=== PATIENT | female | born 1975 | race African-American/Black ===

== ENCOUNTER 2018-08-24 12:03 | Emergency (ER) | payer MEDICAID, OTHER ==
[~2018-08-24] VITALS: Ht 170.2 cm; Wt 69.2 kg
[2018-08-24] MEDS ORDERED: TRAM-48 PO (12:42)
[2018-08-24] MEDS ORDERED: PENI500T PO (12:42)
--- NOTE | 2018-08-24 12:42 | PHYS DOC ---
Past History Past Medical History: No Pertinent History Past Surgical History: No Surgical History Smoking: Cigarettes Alcohol Use: None Drug Use: None Adult General Chief Complaint Chief Complaint: DENTAL PROBLEM HPI HPI Patient is a 43 year old female who presents with complaining of dental pain. Patient states she has had pain in right upper jaw and tooth pain for a few days that does not getting better with [id number] pain medication and complaining of edema of her gum. Patient denies nausea and vomiting, fever and chills, dysphagia. Patient states she lost her dental insurance and expecting to have insurance next month. Review of Systems Review of Systems Constitutional: Denies fever or chills [] Eyes: Denies change in visual acuity, redness, or eye pain [] HENT: Denies nasal congestion or sore throat [] Respiratory: Denies cough or shortness of breath [] Cardiovascular: No additional information not addressed in HPI [] GI: Denies abdominal pain, nausea, vomiting, bloody stools or diarrhea [] : Denies dysuria or hematuria [] Musculoskeletal: Denies back pain or joint pain [] Integument: Denies rash or skin lesions [] Neurologic: Denies headache, focal weakness or sensory changes [] Endocrine: Denies polyuria or polydipsia [] All other systems were reviewed and found to be within normal limits, except as documented in this note. Allergies Allergies Allergies Coded Allergies Type Severity Reaction Last Updated Verified Sulfa (Sulfonamide Antibiotics) Allergy Intermediate Hives 08/24/18 Yes citric acid Allergy Unknown 08/24/18 Yes Physical Exam Physical Exam Constitutional: Well developed, well nourished, mild distress, non-toxic appearance. [] HENT: Normocephalic, atraumatic, bilateral external ears normal, oropharynx moist, no oral exudates, nose normal, extensive dental caries, edema and erythema of gum and tooth #5 and 6 with tenderness Eyes: PERRLA, EOMI, conjunctiva normal, no discharge. [] Neck: Normal range of motion, no tenderness, supple, no stridor. [] Cardiovascular:Heart rate regular rhythm, no murmur [] Lungs & Thorax: Bilateral breath sounds clear to auscultation [] Skin: Warm, dry, no erythema, no rash. [] Back: No tenderness, no CVA tenderness. [] Extremities: No tenderness, no cyanosis, no clubbing, ROM intact, no edema. [] Neurologic: Alert and oriented X 3, normal motor function, normal sensory function, no focal deficits noted. [] Psychologic: Affect normal, judgement normal, mood normal. [] Current Patient Data Vital Signs Vital Signs Date Time Temp Pulse Resp B/P (MAP) Pulse Ox O2 Delivery O2 Flow Rate FiO2 08/24/18 12:03 98.2 113 20 97 Room Air EKG EKG [] Radiology/Procedures Radiology/Procedures [] Course & Med Decision Making Course & Med Decision Making Evaluation of patient in ER showed 43-year-old smoker female patient complaining of dental pain for several days. Patient had erythema, and dental tenderness. Patient did not want to have pain medication in ER. Patient psychiatric to quit smoking and follow up with her dentist. Prescription for pain medication and antibiotics was given. Dragon Disclaimer Dragon Disclaimer This electronic medical record was generated, in whole or in part, using a voice recognition dictation system. Departure Departure: Impression: Primary Impression: Dental abscess Additional Impressions: Tobacco abuse Tobacco abuse counseling Disposition: HOME, SELF-CARE (at 1240) Condition: STABLE Referrals: PCP,NO (PCP) Patient Instructions: Dental Abscess, Smoking Cessation Additional Instructions: Drink plenty of liquids Follow-up with a dentist in 3-5 days Return to ER if not getting better Quit smoking Scripts Tramadol Hcl (ULTRAM) 50 Mg Tablet 50 MG PO PRN Q6HRS PRN for PAIN, #20 TAB Prov: ESTEBAN GELLER MD 08/24/18 Penicillin V Potassium (PENICILLIN V POTASSIUM) 500 Mg Tablet 1 TAB PO QID for Infection, #40 TAB Prov: ESTEBAN GELLER MD 08/24/18 Problem Qualifiers ESTEBAN GELLER MD Aug 24, 2018 12:42
[2018-08-24 12:55] VITALS: BP 135/91
== END 2018-08-24 12:55 | disposition home or self-care (01) ==
LOC: ER 12:03
DX: K04.7 Periapical abscess without sinus (principal); F17.210 Nicotine dependence, cigarettes, uncomplicated; Z71.6 Tobacco abuse counseling; Z88.2 Allergy status to sulfonamides; Z88.8 Allergy status to other drugs, medicaments and biological substances
CPT/HCPCS: 99283

== ENCOUNTER 2019-02-19 13:36 | Emergency (ER) | payer SELFPAY ==
[~2019-02-19] VITALS: Ht 170.2 cm; Wt 69.4 kg
[~2019-02-19 13:36] MED LIST: PENI500T PO; TRAM-48 PO
[2019-02-19] MEDS ORDERED: AMOX500T PO (14:06)
[2019-02-19] MEDS ORDERED: NEOM10SO7 OT (14:06)
--- NOTE | 2019-02-19 14:06 | PHYS DOC ---
Past History Past Medical History: No Pertinent History Past Surgical History: No Surgical History Smoking: Cigarettes Alcohol Use: None Drug Use: None Adult General Chief Complaint Chief Complaint: EARACHE/EAR PAIN HPI HPI Patient is a 43-year-old female presents complaining of bilateral ear discomfort and feeling of fullness. Left is worse than the right. Patient has been swimming this week. She is recently finished a course of clindamycin for dental issues. No drainage from the ears. She sleeps with ear plugs and when she gets up in the morning it feels like they are still in place. No fever. Outpatient makes the symptoms worse. Pain is controlled with ibuprofen. Pain is moderate in intensity.[] Review of Systems Review of Systems Constitutional: Denies fever or chills [] Eyes: Denies change in visual acuity, redness, or eye pain [] HENT: Denies nasal congestion or sore throat [] Respiratory: Denies cough or shortness of breath [] Cardiovascular: No chest pain or palpitations[] GI: Denies abdominal pain, nausea, vomiting, bloody stools or diarrhea [] : Denies dysuria or hematuria [] Musculoskeletal: Denies back pain or joint pain [] Integument: Denies rash or skin lesions [] Neurologic: Denies headache, focal weakness or sensory changes [] Endocrine: Denies polyuria or polydipsia [] All other systems were reviewed and found to be within normal limits, except as documented in this note. Allergies Allergies Allergies Coded Allergies Type Severity Reaction Last Updated Verified Sulfa (Sulfonamide Antibiotics) Allergy Intermediate Hives 08/24/18 Yes citric acid Allergy Unknown 08/24/18 Yes Physical Exam Physical Exam Constitutional: Well developed, well nourished, no acute distress, non-toxic appearance. [] HENT: Normocephalic, atraumatic, bilateral external ears normal, pain with tra holland tug on the left, no mastoid tenderness bilaterally, left canal is erythematous and edematous when compared with the right. TM has mild fluid behind it on the left. Normal TM on the right. Oropharynx moist, no oral exudates, nose normal. [] Eyes: PERRLA, EOMI, conjunctiva normal, no discharge. [] Neck: Normal range of motion, no tenderness, supple, no stridor. [] Cardiovascular:Heart rate regular rhythm, no murmur [] Lungs & Thorax: Bilateral breath sounds clear to auscultation [] Abdomen: Not examined[] Skin: Warm, dry, no erythema, no rash. [] Back: No tenderness, no CVA tenderness. [] Extremities: No tenderness, no cyanosis, no clubbing, ROM intact, no edema. [] Neurologic: Alert and oriented X 3, normal motor function, normal sensory function, no focal deficits noted. [] Psychologic: Affect normal, judgement normal, mood normal. [] Current Patient Data Vital Signs Vital Signs Date Time Temp Pulse Resp B/P (MAP) Pulse Ox O2 Delivery O2 Flow Rate FiO2 02/19/19 13:46 98.1 99 20 98 Room Air EKG EKG [] Radiology/Procedures Radiology/Procedures [] Course & Med Decision Making Course & Med Decision Making Pertinent Labs and Imaging studies reviewed. (See chart for details) Medical decision making: Patient with evidence of otitis externa as well as otitis media. No evidence of mastoiditis. No evidence meningitis or encephalitis. No evidence of inadequate pain medication. Will treat as an outpatient with appropriate empiric medication.[] Dragon Disclaimer Dragon Disclaimer This electronic medical record was generated, in whole or in part, using a voice recognition dictation system. Departure Departure: Impression: Primary Impression: Otitis externa Additional Impression: Otitis media Disposition: 01 HOME, SELF-CARE Condition: IMPROVED Referrals: PCPPRAVEENA (PCP) Patient Instructions: Otitis Externa, Otitis Media, Adult Additional Instructions: Follow-up with your regular doctor in 2 days. If you do not have regular doctor list of local clinics will be provided for you. Take the medication as prescribed. Return to the ER if worsening pain or any other concerns. Scripts Amoxicillin (AMOXICILLIN) 500 Mg Tablet 1 TAB PO TID for OTITIS MEDIA, #30 TAB Prov: WESLY CHÁVEZ DO 02/19/19 Neomycin/Polymyxin B Sulf/Hc ([id number] EAR SOLN) 10 Ml Solution 4 DROP OT QID for otitis externa for 10 Days, [facility] [place]: WESLY CHÁVEZ DO 02/19/19 Problem Qualifiers Primary Impression: Otitis externa Otitis externa type: swimmer's ear Chronicity: acute Laterality: bilateral Qualified Codes: H60.333 - Swimmer's ear, bilateral Additional Impression: Otitis media Otitis media type: unspecified Chronicity: acute Qualified Codes: H66.90 - Otitis media, unspecified, unspecified ear WESLY CHÁVEZ DO Feb 19, 2019 14:06
[2019-02-19] MEDS ORDERED: IV NORMAL SALINE 1,000ML 1,000 ML IV SCH (14:08)
[2019-02-19] MEDS ORDERED: ACETAMINOPHEN 325 MG TABLET PO PRN (14:15)
[2019-02-19] MEDS ORDERED: ONDANSETRON PF 4 MG/2 ML VIAL. IV PRN (14:15)
[2019-02-19] MEDS ORDERED: MORPHINE SULFATE 4 MG/ML DISP.SYRIN. IV PRN (14:15)
[2019-02-19 14:17] VITALS: BP 121/71
== END 2019-02-19 16:05 | disposition home or self-care (01) ==
LOC: ER 13:36
DX: H60.333 Swimmer's ear, bilateral (principal); H66.92 Otitis media, unspecified, left ear; F17.210 Nicotine dependence, cigarettes, uncomplicated; Z88.2 Allergy status to sulfonamides; Z88.8 Allergy status to other drugs, medicaments and biological substances
CPT/HCPCS: 99283

== ENCOUNTER 2019-02-21 14:12 | Emergency (ER) | payer OTHER ==
[~2019-02-21] VITALS: Ht 322.6 cm; Wt 69.2 kg
[~2019-02-21 14:12] MED LIST changes: +AMOX500T PO; +NEOM10SO7 OT
[2019-02-21 14:43] VITALS: BP 108/69
[2019-02-21] MEDS ORDERED: MECL25TA3 PO (15:11)
[2019-02-21] MEDS ORDERED: MELO7.5T29 PO (15:11)
--- NOTE | 2019-02-21 15:11 | PHYS DOC ---
Past History Past Medical History: No Pertinent History Past Surgical History: No Surgical History Smoking: Cigarettes Alcohol Use: None Drug Use: None Adult General Chief Complaint Chief Complaint: EARACHE/EAR PAIN HPI HPI Patient is a 43-year-old female presents with continued ear discomfort and some dizziness that is worse when she turns her head. The discomfort is better than when she was seen 2 days ago for an otitis media and otitis externa. She denies any drainage from the ear. She notes that her left ear is doing better or 8 years to hurt hurting so she started using the drops in her right ear for the otitis externa. Dizziness is worse with head movement. No nausea or vomiting.[] Review of Systems Review of Systems Constitutional: Denies fever or chills [] Eyes: Denies change in visual acuity, redness, or eye pain [] HENT: Denies nasal congestion or sore throat see history of present illness [] Respiratory: Denies cough or shortness of breath [] Cardiovascular: Chest pain or palpitations[] GI: Denies abdominal pain, nausea, vomiting, bloody stools or diarrhea [] : Denies dysuria or hematuria [] Musculoskeletal: Denies back pain or joint pain [] Integument: Denies rash or skin lesions [] Neurologic: Denies headache, focal weakness or sensory changes [] Endocrine: Denies polyuria or polydipsia [] All other systems were reviewed and found to be within normal limits, except as documented in this note. Allergies Allergies Allergies Coded Allergies Type Severity Reaction Last Updated Verified Sulfa (Sulfonamide Antibiotics) Allergy Intermediate Hives 08/24/18 Yes citric acid Allergy Unknown 08/24/18 Yes Physical Exam Physical Exam Constitutional: Well developed, well nourished, no acute distress, non-toxic appearance. [] HENT: Normocephalic, atraumatic, bilateral external ears normal, left canal looks significantly better than when I saw 2 days ago. No significant fluid behind either TM. No mastoid tenderness. No significant right canal edema. Oropharynx moist, no oral exudates, nose normal. [] Eyes: PERRLA, EOMI, conjunctiva normal, no discharge. [] Neck: Normal range of motion, no tenderness, supple, no stridor. [] Cardiovascular:Heart rate regular rhythm, no murmur [] Lungs & Thorax: Bilateral breath sounds clear to auscultation [] Abdomen: Bowel sounds normal, soft, no tenderness, no masses, no pulsatile masses. [] Skin: Warm, dry, no erythema, no rash. [] Back: No tenderness, no CVA tenderness. [] Extremities: No tenderness, no cyanosis, no clubbing, ROM intact, no edema. [] Neurologic: Alert and oriented X 3, normal motor function, normal sensory function, no focal deficits noted. Hallpike on the left shows nystagmus that starts within 15 seconds of change in position, and improves with in 1 minute. [] Psychologic: Affect normal, judgement normal, mood normal. [] Current Patient Data Vital Signs Vital Signs Date Time Temp Pulse Resp B/P (MAP) Pulse Ox O2 Delivery O2 Flow Rate FiO2 02/21/19 14:56 Room Air 02/21/19 14:43 98.4 104 20 100 EKG EKG [] Radiology/Procedures Radiology/Procedures [] Course & Med Decision Making Course & Med Decision Making Pertinent Labs and Imaging studies reviewed. (See chart for details) Alejandro decision making: There is no evidence of meningitis or encephalitis. Patient's otitis externa appears to be significantly improved on the left side. Believe that she also has peripheral vertigo given the symptoms. We will treat her for this as well as pain. We'll continue the course for the otitis media and otitis externa.[] Dragon Disclaimer Dragon Disclaimer This electronic medical record was generated, in whole or in part, using a voice recognition dictation system. Departure Departure: Impression: Primary Impression: Swimmers' ear Additional Impression: Peripheral vertigo Disposition: 01 HOME, SELF-CARE Condition: IMPROVED Referrals: PCP,PRAVEENA (PCP) Patient Instructions: Otitis Externa, Vertigo Additional Instructions: Follow-up with your regular doctor in 2 days. If you do not have regular doctor list of local clinics will be provided for you. Into new your medicine as prescribed and take the new ones as prescribed. Return to the ER if worsening pain, worsening dizziness, or any other concerns Scripts Meloxicam (MELOXICAM) 7.5 Mg Tablet 7.5 MG PO DAILY for PAIN, #20 TAB Prov: WESLY CHÁVEZ DO 02/21/19 Meclizine Hcl (MECLIZINE HCL) 25 Mg Tablet 1 TAB PO PRN TID for vertigo, #30 TAB Prov: WESLY CHÁVEZ DO 02/21/19 Problem Qualifiers Primary Impression: Swimmers' ear Chronicity: acute Laterality: left Qualified Codes: H60.332 - Swimmer's ear, left ear Additional Impression: Peripheral vertigo Laterality: unspecified laterality Qualified Codes: H81.399 - Other peripheral vertigo, unspecified ear WESLY CHÁVEZ DO Feb 21, 2019 15:11
== END 2019-02-21 15:30 | disposition home or self-care (01) ==
LOC: ER 14:12
DX: H60.332 Swimmer's ear, left ear (principal); H81.399 Other peripheral vertigo, unspecified ear; F17.210 Nicotine dependence, cigarettes, uncomplicated; Z88.2 Allergy status to sulfonamides; Z88.8 Allergy status to other drugs, medicaments and biological substances
CPT/HCPCS: 99283